=== PATIENT | male | born 1995 | race Caucasian/White ===

== ENCOUNTER 2017-12-31 08:46 | Emergency (ER) | payer SELFPAY ==
[~2017-12-31] VITALS: Ht 180.3 cm; Wt 77.0 kg
[2017-12-31 09:07] LABS: HEMATOCRIT 46.8 % (38.0-50.0); HEMOGLOBIN 16.8 G/DL (12.5-16.6); MCH 31.8 PG (29.0-34.0); MCHC 35.9 G/DL (30.0-36.0); MCV 88.6 FL (86-99); PLATELET COUNT 120 K/uL (156-360); RBC DIS.WIDTH-CV 12.5 % (11.8-14.6); RBC DIS.WIDTH-SD 40.8 % (39-53); RED BLOOD COUNT 5.28 M/uL (4.00-5.50); WHITE BLOOD COUNT 9.1 K/uL (4.1-10.2)
[2017-12-31 09:16] LABS: APPEARANCE CLEAR ((CLEAR)); BILIRUBIN NEGATIVE; BLOOD MODERATE; COLOR YELLOW ((YELLOW)); GLUCOSE (STRIP) NEGATIVE; KETONES NEGATIVE; LEUKOCYTES NEGATIVE; NITRITE NEGATIVE; PROTEIN (STRIP) NEGATIVE; SPECIFIC GRAVITY 1.024 (1.000-1.030); UROBILINOGEN 0.2 MG/DL (0.2-1.0)
[2017-12-31 09:16] LABS: ALBUMIN 4.6 g/dL (3.2-4.8); CHLORIDE 107 mEq/L (99-109); POTASSIUM 4.6 mEq/L (3.7-5.4); SODIUM 138 mEq/L (136-147)
[2017-12-31 09:19] LABS: GLUCOSE 113 mg/dL (70-99); TOTAL PROTEIN 7.4 g/dL (6.4-8.3)
[2017-12-31 09:19] LABS: BACTERIA NONE SEEN /HPF; EPITHELIAL CELLS NONE SEEN /HPF; MUCUS 2+ /LPF; RED BLOOD CELLS 30-40 /HPF (0-5); WHITE BLOOD CELLS 0-5 /HPF (0-5)
[2017-12-31 09:21] LABS: TOTAL BILIRUBIN 0.6 mg/dL (0.0-1.0)
[2017-12-31 09:22] LABS: ALKALINE PHOSPHATASE 98 IU/L (3-129)
[2017-12-31 09:23] LABS: GFR ESTIMATE (CALCULATED) > 59 mL/min/ (58.99-99999)
[2017-12-31 09:24] LABS: AST (GOT) 24 IU/L (2-34); UREA NITROGEN (BUN) 14 mg/dL (9-23)
[2017-12-31 09:25] LABS: ALT (GPT) 34 IU/L (3-49)
[2017-12-31] MEDS ORDERED: PERCOCET 5/31 TABLET PO (10:31)
[2017-12-31] MEDS ORDERED: FLOMAX0.4 MG PO (10:31)
[2017-12-31] MEDS ORDERED: ZOFRAN ODT4 MG PO (10:31)
[2017-12-31] MEDS ORDERED: MOTRIN800 MG PO (10:31)
[2017-12-31 10:46] VITALS: BP 127/71
== END 2017-12-31 11:16 | disposition home or self-care (01) ==
LOC: EME 08:46
PROVIDERS: Nurse Practitioner Family
DX: N13.2 Hydronephrosis with renal and ureteral calculous obstruction (principal); D69.6 Thrombocytopenia, unspecified; F17.200 Nicotine dependence, unspecified, uncomplicated
CPT/HCPCS: 74176; 80053; 81003; 85027; 99281; 99284; J1885; J2270; J2405; J7030